=== PATIENT | male | born 1930 | race Caucasian/White ===

== ENCOUNTER → 2016-12-12 | Outpatient (CLI) | payer MEDICARE, BC ==
[~2016-12-12] VITALS: Ht 172.7 cm; Wt 100.2 kg
[~2016-12-12] MED LIST: ASP81TEC PO; ATOR20TA66 PO; ATOR40TA PO; ATOR40TA70 PO; CATHETER FLUSH 10 ML SYR IV PRN; REGADENOSON 0.4 MG/5 ML SYR (LEXISCAN) IV ONE; TRAM50TA2 PO; WRF5T PO; multivitamin PO
--- OUTSIDE RECORDS SUMMARY | 2016-12-12 07:55 | XMS REPORT | Continuity of Care Document ---
Author Author [facility] Organization [facility] Address Unknown Phone Unavailable Care Team Providers Care Elevator Mechanic Name Role Phone NO, LOCAL PHYSICIAN PCP Unavailable Insurance Providers Payer Name Policy Number Subscriber Name Relationship s Medicare [id number] Killian Chen 18 Self / Same As Patient [facility] [id number] Killian Chen 18 Self / Same As Patient Advance Directives Directive Response Recorded Date/Time Advance Directives No 03/29/16 4:54pm Health Care Power of Cloth Picker No 03/29/16 4:54pm Organ Donor No 03/29/16 4:54pm Resuscitation Status Full Code 03/29/16 4:54pm Problems No problem information available. Medications Current Home Medications Medication Dose Units Route Directions Days/Qty Instructions Start Date Aspirin 81 Mg 81 Mg Oral 1700 08/27/12 Atorvastatin Calcium 40 Mg 20 Mg Oral 1700 03/29/16 Tramadol Hcl 50 Mg 50 Mg Oral Every 12 Hours as needed for Abdominal Pain 20 03/31/16 Past Home Medications Medication Directions Ordered Status Atorvastatin Calcium 40 Mg Tablet, 20 Mg Oral Bedtime 02/04/12 Discontinued Atorvastatin Calcium 20 Mg Tablet, 20 Mg Oral 1600 03/29/16 Discontinued Social History Social History Problem Response Recorded Date/Time Alcohol Use Denies Use 03/29/2016 4:56pm Recreational Drug Use No 03/29/2016 4:56pm Recent Foreign Travel No 03/29/2016 4:56pm Recent Infectious Disease Exposure No 03/29/2016 4:56pm Smoking Status Never a Smoker 03/29/2016 4:55pm Query Response Start Date Stop Date Smoking Status Never a Smoker 02/04/1992 Hospital Discharge Instructions Patient Instructions Physician Instructions New, Converted or Re-Newed RX: RX on Chart Plan of Care/Instructions/FU: May shower. To use incentive spirometry for atleast one week. F/U in 1 week Activity as Tolerated: Yes Discharge Diet: No Restrictions Pneu Vac Indicated: Yes Care Plan Patient Instructions:: May shower. To use incentive spirometry for atleast one week. F/U in 1 week Plan of Care Discharge Date 04/01/16 8:55am Disposition 01 HOME, SELF-CARE Instructions/Education Provided DIABETES Diabetes Mellitus Type 2 in Adults (DC) Meal Planning with Diabetes Exchanges (DC) Acute Abdominal Pain (ED) Forms Provided PDI Medical Prescriptions See Medication Section Referrals (Unspecified) - Reason(s) for Referral: FOLLOW UP WITH DR. CHAUHAN IN ONE WEEK!!! Care Plan and Goals See Discharge Instructions Section Functional Status Query Response Date Recorded Patient Orientation Person Place Time Situation Eyes Open April 01, 2016 9:04am Comprehension Ability Understands Concepts March 31, 2016 8:25pm Allergies, Adverse Reactions, Alerts Allergen Type Severity Reaction Status Last Updated Penicillins ([id number]) Allergy Unknown Active 03/29/16 Egg Derived Allergy Unknown Active 03/29/16 CHLORINE Allergy Unknown Active 03/29/16 flu shot Allergy Unknown Active 03/29/16 Immunizations No immunization records. Vital Signs Acute Vital Signs Vital Response Date/Time Temperature (Fahrenheit) 97.8 degrees F (97.6 - 99.5) 04/01/2016 5:37am Temperature (Calculated Celsius) 36.95881 degrees C (36.4 - 37.5) 04/01/2016 5:37am Temperature Source Tympanic 04/01/2016 5:37am Pulse Rate (adult) 57 bpm (60 - 90) 04/01/2016 5:37am Respiratory Rate 20 bpm (12 - 24) 04/01/2016 5:37am O2 Sat by Pulse Oximetry 92 % (88 - 100) 04/01/2016 6:34am Blood Pressure 150/74 mm Hg 04/01/2016 5:37am Blood Pressure Mean 99 mm Hg 04/01/2016 5:37am Pain Pain Intensity 0 04/01/2016 5:37am Height (Feet) 5 feet 03/29/2016 4:51pm Height (Inches) 8.00 inches 03/29/2016 4:51pm Height (Calculated Centimeters) 172.069423 cm 03/29/2016 4:51pm Weight (Pounds) 214 pounds 03/29/2016 4:51pm Weight (Ounces) 6.0 oz 03/29/2016 4:51pm Weight (Calculated Grams) 83549.865 gm 03/29/2016 4:51pm Weight (Calculated Kilograms) 97.717773 kilograms 03/29/2016 4:51pm Calculated BMI 32.6 03/29/2016 4:51pm Results Laboratory Results Test Name Result Units Flags Reference Collection Date/Time Result Date/ Time Comments White Blood Count 13.1 10^3/uL H 4.3-11.0 03/30/2016 4:45am 03/30/2016 5: 43am Red Blood Count 3.69 10^6/uL L 4.35-5.85 03/30/2016 4:45am 03/30/2016 5: 43am Hemoglobin 11.9 G/DL L 13.3-17.7 03/30/2016 4:45am 03/30/2016 5:43am Hematocrit 36 % L 40-54 03/30/2016 4:45am 03/30/2016 5:43am Mean Corpuscular Volume 97 FL 80-99 03/30/2016 4:45am 03/30/2016 5: 43am Mean Corpuscular Hemoglobin 32 PG 25-34 03/30/2016 4:45am 03/30/2016 5: 43am Mean Corpuscular Hemoglobin Concent 33 G/DL 32-36 03/30/2016 4:45am 08/2016 5:43am Red Cell Distribution Width 14.5 % 10.0-14.5 03/30/2016 4:45am 2015 5:43am Platelet Count 205 10^3/uL 130-400 03/30/2016 4:45am 03/30/2016 5:43am Mean Platelet Volume 11.0 FL H 7.4-10.4 03/30/2016 4:45am 03/30/2016 5: 43am Neutrophils (%) (Auto) 76 % H 42-75 03/30/2016 4:45am 03/30/2016 5:43am Lymphocytes (%) (Auto) 12 % 12-44 03/30/2016 4:45am 03/30/2016 5:43am Monocytes (%) (Auto) 11 % 0-12 03/30/2016 4:45am 03/30/2016 5:43am Eosinophils (%) (Auto) 0 % 0-10 03/30/2016 4:4503/30/2016 5:43am Basophils (%) (Auto) 0 % 0-10 03/30/2016 4:45am 03/30/2016 5:43am Neutrophils # (Auto) 10.0 X 10^3 H 1.8-7.8 03/30/2016 4:45am 03/30/2016 5 :43am Lymphocytes # (Auto) 1.6 X 10^3 1.0-4.0 03/30/2016 4:45am 03/30/2016 5: 43am Monocytes # (Auto) 1.5 X 10^3 H 0.0-1.0 03/30/2016 4:45am 03/30/2016 5: 43am Eosinophils # (Auto) 0.1 10^3/uL 0.0-0.3 03/30/2016 4:45am 03/30/2016 5 :43am Basophils # (Auto) 0.0 10^3/uL 0.0-0.1 03/30/2016 4:45am 03/30/2016 5: 43am Neutrophils % (Manual) 79 % 03/29/2016 8:00am 03/29/2016 8:43am Band Neutrophils 8 % 03/29/2016 8:00am 03/29/2016 8:43am Lymphocytes % (Manual) 7 % 03/29/2016 8:00am 03/29/2016 8:43am Monocytes % (Manual) 6 % 03/29/2016 8:00am 03/29/2016 8:43am Eosinophils % (Manual) 0 % 03/29/2016 8:00am 03/29/2016 8:43am Basophils % (Manual) 0 % 03/29/2016 8:00am 03/29/2016 8:43am Blood Morphology Comment NORMAL 03/29/2016 8:00am 03/29/2016 8: 43am Urine Color SERVANDO * 03/29/2016 8:0503/29/2016 8:36am Urine Clarity CLEAR 03/29/2016 8:0503/29/2016 8:36am Urine pH 5 5-9 03/29/2016 8:0503/29/2016 8:36am Urine Specific [place] 1.025 * 1.016-1.022 03/29/2016 8:052015 8:36am Urine Protein 2+ * NEGATIVE 03/29/2016 8:0503/29/2016 8:36am Urine Glucose (UA) NEGATIVE NEGATIVE 03/29/2016 8:0503/29/2016 8: 36am Urine RBC (Auto) 2+ * NEGATIVE 03/29/2016 8:0503/29/2016 8:36am Urine Ketones 3+ * NEGATIVE 03/29/2016 8:0503/29/2016 8:36am Urine Nitrite NEGATIVE NEGATIVE 03/29/2016 8:0503/29/2016 8:36am Urine Bilirubin 1+ * NEGATIVE 03/29/2016 8:0503/29/2016 8:36am CONFIRMATORY ICTOTEST NEGATIVE Urine Urobilinogen 1 MG/DL NORMAL 03/29/2016 8:0503/29/2016 8:36am Urine Leukocyte Esterase 1+ * NEGATIVE 03/29/2016 8:0503/29/2016 8: 36am Urine RBC RARE /HPF 03/29/2016 8:0503/29/2016 8:36am Urine WBC 0-2 /HPF 03/29/2016 8:0503/29/2016 8:36am Urine Bacteria TRACE /HPF 03/29/2016 8:0503/29/2016 8:36am Urine Squamous Epithelial Cells 0-2 /HPF 03/29/2016 8:052015 8:36am Urine Crystals NONE /LPF 03/29/2016 8:0503/29/2016 8:36am Urine Casts PRESENT /LPF 03/29/2016 8:0503/29/2016 8:36am Urine Hyaline Casts 2-5 /LPF * 03/29/2016 8:0503/29/2016 8:36am Urine Mucus MODERATE /LPF * 03/29/2016 8:0503/29/2016 8:36am Urine Culture Indicated NO 03/29/2016 8:0503/29/2016 8:36am Sodium Level 137 MMOL/L 135-145 03/30/2016 4:4503/30/2016 6:09am Potassium Level 4.2 MMOL/L 3.6-5.0 03/30/2016 4:45am 03/30/2016 6:09am Chloride Level 106 MMOL/L 98-107 03/30/2016 4:45am 03/30/2016 6:09am Carbon Dioxide Level 24 MMOL/L 21-32 03/30/2016 4:45am 03/30/2016 6: 09am Anion Gap 7 MMOL/L 5-14 03/30/2016 4:45am 03/30/2016 6:09am Blood Urea Nitrogen 9 MG/DL 7-18 03/30/2016 4:45am 03/30/2016 6:09am Creatinine 0.99 MG/DL 0.60-1.30 03/30/2016 4:45am 03/30/2016 6:09am BUN/Creatinine Ratio 9 03/30/2016 4:45am 03/30/2016 6:09am Estimat Glomerular Filtration Rate > 60 03/30/2016 4:45am 2015 6:09am GFR INTERPRETIVE DATA UNITS FOR ESTIMATED GFR (eGFR): mL/min/1.73 M2 REFERENCE RANGE FOR ESTIMATED GFR (eGFR) eGFR NORMAL eGFR >60 MODERATELY DECREASED eGFR 30-59 SEVERLY DECREASED eGFR 15-29 KIDNEY FAILURE <15 (OR DIALYSIS) Glucose Level 133 MG/DL H 70-105 03/30/2016 4:45am 03/30/2016 6:09am Glucometer 128 MG/DL H 70-110 04/01/2016 5:41am 04/01/2016 5:47am Calcium Level 7.9 MG/DL L 8.5-10.1 03/30/2016 4:45am 03/30/2016 6:09am Total Bilirubin 0.8 MG/DL 0.1-1.0 03/30/2016 4:45am 03/30/2016 6:09am Alkaline Phosphatase 57 U/L 40-136 03/30/2016 4:45am 03/30/2016 6:09am Aspartate Amino Transf (AST/SGOT) 38 U/L H 5-34 03/30/2016 4:45am 2015 6:09am Alanine Aminotransferase (ALT/SGPT) 33 U/L 0-55 03/30/2016 4:45am 03/30 6:09am Total Protein 5.6 G/DL L 6.4-8.2 03/30/2016 4:45am 03/30/2016 6:09am Albumin 3.1 G/DL L 3.2-4.5 03/30/2016 4:45am 03/30/2016 6:09am Lipase 24 U/L 8-78 03/29/2016 8:00am 03/29/2016 8:45am Hemoglobin A1c 8.0 % H 4.5-6.2 03/30/2016 4:45am 03/30/2016 6:53am Microbiology Results Procedure Source Result Collection Date/Time Result Date/Time MRSA Screen Nasal MRSA not isolated 03/29/2016 3:58pm 03/30/2016 3:55pm Procedures Procedure Status Date Provider(s) Laparoscopic cholecystectomy Completed 03/29/16 KIRAN CHAUHAN MD Tracing only of electrocardiogram Active 03/30/16 JUAN UMANZOR MD Encounters Encounter Location Arrival/Admit Date Discharge/Depart Date Attending Provider Discharged Inpatient [facility] 03/29/16 1:06pm 8:55am JUJU HATHAWAY MD
[2016-12-12 09:26] VITALS: BP 156/88
[2016-12-12 09:28] VITALS: BP 146/69
[2016-12-12 09:30] VITALS: BP 164/70
--- NOTE | 2016-12-13 08:36 | STRESS TEST ---
PROCEDURE PHYSICIAN: KEVIN FRANCOIS DATE OF PROCEDURE: 12/12/2016 RESTING AND POST REGADENOSON TECHNETIUM 99M TETROFOSMIN SPECT CT IMAGING: ORDERING PHYSICIAN: Dr. Francois CLINICAL DIAGNOSES: 1. Coronary artery disease. 2. History of coronary artery bypass surgery. Baseline images were carried out after injection of 10.07 mCi of technetium 99m tetrofosmin. This was followed by 0.4 mg of regadenoson and 32.5 mCi of technetium 99m tetrofosmin for stress imaging. The electrocardiogram showed sinus rhythm with first degree AV block at baseline. There were isolated premature atrial contractions and isolated premature ventricular contractions, in frequency. The electrocardiogram did not change significantly with regadenoson infusion. He noted mild shortness of breath following regadenoson infusion, which resolved in a few minutes. Review of images rest and following stress, does not indicate any distinct perfusion defects consistent with significant myocardial ischemia or infarction. Gated images show normal global left ventricular systolic function with normal regional wall motion. Left ventricular ejection fraction is calculated to be 76%. Left ventricular end-diastolic volume is 51 mL. TID is absent (0.97). CONCLUSIONS: 1. No evidence of significant myocardial ischemia or infarction on this study. 2. Normal regional wall motion. 3. Normal global left ventricular systolic function with a calculated ejection fraction of 76%. 4. Normal left ventricular cavity size. Job ID: [id number] Dictated Date: 12/12/2016 10:47:00 Guest Attendant Date: 12/13/2016 08:26:45 / sridhar
== END ==
LOC: CARD 07:52
PROVIDERS: ATTEND Internal Medicine Cardiovascular Disease
DX: I25.10 Atherosclerotic heart disease of native coronary artery without angina pectoris (principal); Z95.1 Presence of aortocoronary bypass graft; I65.23 Occlusion and stenosis of bilateral carotid arteries; E78.4 Other hyperlipidemia
CPT/HCPCS: 78452; 93017

== ENCOUNTER → 2018-01-01 | Outpatient (CLI) | payer MEDICARE ==
[~2018-01-01] MED LIST changes: -CATHETER FLUSH 10 ML SYR IV PRN; -REGADENOSON 0.4 MG/5 ML SYR (LEXISCAN) IV ONE
== END ==
LOC: CARD 10:54
PROVIDERS: ATTEND Nurse Practitioner Family
DX: I44.0 Atrioventricular block, first degree (principal); I25.10 Atherosclerotic heart disease of native coronary artery without angina pectoris; I10 Essential (primary) hypertension; E78.5 Hyperlipidemia, unspecified
CPT/HCPCS: 93225; 93226

== ENCOUNTER 2019-06-29 11:41 | Emergency (ER) | payer MEDICARE ==
[~2019-06-29] VITALS: Ht 172.7 cm; Wt 100.0 kg
[2019-06-29 12:24] LABS: BASOPHILS % (AUTO) 0 % (0-10); EOSINOPHILS # (AUTO) 0.3 10^3/uL (0.0-0.3); EOSINOPHILS % (AUTO) 3 % (0-10); HEMATOCRIT 39 % (40-54); HEMOGLOBIN 12.8 G/DL (13.3-17.7); LYMPHOCYTES # (AUTO) 1.9 X 10^3 (1.0-4.0); LYMPHOCYTES % (AUTO) 25 % (12-44); MEAN CORPUSCULAR HEMOGLOBIN 31 PG (25-34); MEAN CORPUSCULAR HGB CONC 33 G/DL (32-36); MEAN CORPUSCULAR VOLUME 97 FL (80-99); MEAN PLATELET VOLUME 9.6 FL (7.4-10.4); MONOCYTES # (AUTO) 0.8 X 10^3 (0.0-1.0); MONOCYTES % (AUTO) 11 % (0-12); NEUTROPHILS # (AUTO) 4.6 X 10^3 (1.8-7.8); NEUTROPHILS % (AUTO) 60 % (42-75); PLATELET COUNT 328 10^3/uL (130-400); WHITE BLOOD COUNT 7.6 10^3/uL (4.3-11.0)
--- NOTE | 2019-06-29 12:36 | Diagnostic Imaging Report ---
INDICATION: Chronic chest pain. Shortness of air. COMPARISON: 02/04/2012 FINDINGS: Frontal and lateral views of the chest demonstrate normal heart size and pulmonary vascularity. The lungs are clear. There are no signs of infiltrate, pleural effusions or pneumothoraces. The visualized osseous structures show no acute abnormalities. Sternotomy wires are noted. IMPRESSION: 1. No acute process. No signs of infiltrates, effusions or pneumothoraces. Dictated by: Dictated on workstation # [id number]
[2019-06-29 12:45] LABS: ALANINE AMINOTRANSFERASE 18 U/L (0-55); ALBUMIN 3.7 GM/DL (3.2-4.5); ALKALINE PHOSPHATASE 94 U/L (40-136); BILIRUBIN,TOTAL 0.5 MG/DL (0.1-1.0); BUN/CREATININE RATIO 12; CALCIUM 9.3 MG/DL (8.5-10.1); CARBON DIOXIDE 28 MMOL/L (21-32); CHLORIDE 102 MMOL/L (98-107); CREATININE SERUM 1.06 MG/DL (0.60-1.30); GFR ESTIMATED > 60; GLUCOSE 148 MG/DL (70-105); MAGNESIUM 1.8 MG/DL (1.6-2.4); POTASSIUM 4.4 MMOL/L (3.6-5.0); SODIUM 136 MMOL/L (135-145); TOTAL PROTEIN 7.4 GM/DL (6.4-8.2)
--- NOTE | 2019-06-29 13:05 | NUR ---
UNSURE OF MEDS. NO LIST
--- NOTE | 2019-06-29 13:11 | ED General ---
General Chief Complaint: General Problems/Pain Stated Complaint: SHORTNESS OF BREATH Nursing Triage Note: AMB TO ROOM WAS SENT FROM [facility] IN [place] PATIENT HAD WENT TO SEEN DR FOR CONCERN OVER SWELLING IN R LEG. AND FEELING SOA FOR APX 6 MONTHS. Nursing Sepsis Screen: No Definite Risk Source of Information: Patient Exam Limitations: No Limitations History of Present Illness Date Seen by Provider: Jun 29, 2019 Time Seen by Provider: 11:55 Initial Comments This 89-year-old gentleman presents to the emergency room with right lower extr emity edema. He was sent here by his primary care provider, Dr. Adrian, in [facility] for evaluation of possible DVT. The clinic nurse tells me that he also has had some shortness of breath. Patient admits that he has had shortness of breath over the past 6 months. He denies any chest pain. There is questionable history of prior DVT and PE. He was anticoagulated on warfarin at one point. Allergies and Home Medications Allergies Coded Allergies: Egg Derived (Verified Allergy, Unknown, 03/29/16) Influenza Virus Vaccines (Unverified Allergy, Unknown, 12/12/16) Penicillins (Unverified Allergy, Unknown, 03/29/16) Uncoded Allergies: CHLORINE (Allergy, Unknown, 03/29/16) Home Medications Aspirin 81 Mg Tabec, 81 MG PO 1700, (Reported) Atorvastatin Calcium 40 Mg Tablet, 20 MG PO 1700, (Reported) Tramadol HCl 50 Mg Tablet, 50 MG PO Q12H PRN for ABDOMINAL PAIN Prescribed by: KIRAN CHAUHAN on 03/31/16 1132 Patient Home Medication List Home Medication List Reviewed: Yes Review of Systems Review of Systems Constitutional: no symptoms reported EENTM: no symptoms reported Respiratory: see HPI, short of breath Cardiovascular: see HPI Gastrointestinal: no symptoms reported Genitourinary: no symptoms reported Musculoskeletal: no symptoms reported Skin: no symptoms reported Psychiatric/Neurological: No Symptoms Reported Hematologic/Lymphatic: No Symptoms Reported Past Csrabcs-Kumtya-Klfxpj Hx Past Med/Social Hx: Reviewed and Corrections made Patient Social History Alcohol Use: Denies Use Recreational Drug Use: No Smoking Status: Never a Smoker Recent Foreign Travel: No Contact w/Someone Who Travel: No Recent Infectious Disease Expo: No Recent Hopitalizations: Yes Past Medical History Surgeries: Yes (SPLEENECTOMY, ) CABG, Gallbladder Respiratory: Yes Pulmonary Embolism Currently Using CPAP: No Currently Using BIPAP: No Cardiac: Yes (BYPASS) Coronary Artery Disease, High Cholesterol Neurological: No Reproductive Disorders: No Gastrointestinal: Yes Hiatal Hernia Musculoskeletal: Yes (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 No Pertinent Family Hx Physical Exam Vital Signs Vital Signs - First Documented 06/29/19 12:11 Temp 36.7 Pulse 52 Resp 18 B/P (MAP) 150/84 Pulse Ox 97 O2 Delivery Room Air Capillary Refill : Less Than 3 Seconds Height, Weight, BMI Height: 5'8.00" Weight: 221lbs. 0.0oz. 100.415000me; 33.00 BMI Method:Stated General Appearance: No Apparent Distress, WD/WN HEENT: PERRL/EOMI, Normal ENT Inspection Neck: Normal Inspection Respiratory: Lungs Clear, Normal Breath Sounds, No Accessory Muscle Use, No Respiratory Distress Cardiovascular: Regular Rate, Rhythm, No Murmur, Normal Peripheral Pulses Gastrointestinal: Non Tender, Soft Extremity: Normal Inspection, Other (marked tight pitting edema of the right lower extremity with tenderness in the calf. Disfigurement of the left lower leg from prior injury) Neurologic/Psychiatric: Alert, Oriented x3, No Motor/Sensory Deficits, Normal Mood/Affect, blow down operator II-XII Norm as Tested Skin: Normal Color, Warm/Dry Progress/Results/Core Measures Suspected Sepsis Recent Fever Within 48 Hours: No Infection Criteria Present: None New/Unexplained Altered Menta: No Sepsis Screen: No Definite Risk SIRS Temperature: Pulse: 52 Respiratory Rate: 18 Laboratory Tests 06/29/19 12:11: White Blood Count 7.6 Blood Pressure 150 /84 Mean: 106 Laboratory Tests 06/29/19 12:11: Creatinine 1.06, Platelet Count 328, Total Bilirubin 0.5 Results/Orders Lab Results Laboratory Tests Test 06/29/19 12:11 Range/Units White Blood Count 7.6 4.3-11.0 10^3/uL Red Blood Count 4.07 L 4.35-5.85 10^6/uL Hemoglobin 12.8 L 13.3-17.7 G/DL Hematocrit 39 L 40-54 % Mean Corpuscular Volume 97 80-99 FL Mean Corpuscular Hemoglobin 31 25-34 PG Mean Corpuscular Hemoglobin Concent 33 32-36 G/DL Red Cell Distribution Width 14.0 10.0-14.5 % Platelet Count 328 130-400 10^3/uL Mean Platelet Volume 9.6 7.4-10.4 FL Neutrophils (%) (Auto) 60 42-75 % Lymphocytes (%) (Auto) 25 12-44 % Monocytes (%) (Auto) 11 0-12 % Eosinophils (%) (Auto) 3 0-10 % Basophils (%) (Auto) 0 0-10 % Neutrophils # (Auto) 4.6 1.8-7.8 X 10^3 Lymphocytes # (Auto) 1.9 1.0-4.0 X 10^3 Monocytes # (Auto) 0.8 0.0-1.0 X 10^3 Eosinophils # (Auto) 0.3 0.0-0.3 10^3/uL Basophils # (Auto) 0.0 0.0-0.1 10^3/uL Sodium Level 136 135-145 MMOL/L Potassium Level 4.4 3.6-5.0 MMOL/L Chloride Level 102 98-107 MMOL/L Carbon Dioxide Level 28 21-32 MMOL/L Anion Gap 6 5-14 MMOL/L Blood Urea Nitrogen 13 7-18 MG/DL Creatinine 1.06 0.60-1.30 MG/DL Estimat Glomerular Filtration Rate > 60 BUN/Creatinine Ratio 12 Glucose Level 148 H 70-105 MG/DL Calcium Level 9.3 8.5-10.1 MG/DL Corrected Calcium 9.5 8.5-10.1 MG/DL Magnesium Level 1.8 1.6-2.4 MG/DL Total Bilirubin 0.5 0.1-1.0 MG/DL Aspartate Amino Transf (AST/SGOT) 19 5-34 U/L Alanine Aminotransferase (ALT/SGPT) 18 0-55 U/L Alkaline Phosphatase 94 40-136 U/L C-Reactive Protein High Sensitivity 2.73 H 0.00-0.50 MG/DL B-Type Natriuretic Peptide 139.7 H <100.0 PG/ML Total Protein 7.4 6.4-8.2 GM/DL Albumin 3.7 3.2-4.5 GM/DL My Philipp Segal - CURTIS DOMINGUEZ MD BNP (06/29/19 11:58) Cbc With Automated Diff (06/29/19 11:58) Comprehensive Metabolic Panel (06/29/19 11:58) Hs C Reactive Protein (06/29/19 11:58) Magnesium (06/29/19 11:58) Ekg Tracing (06/29/19 11:58) Monitor-Rhythm Ecg Trace Only (06/29/19 11:58) Chest Pa/Lat (2 View) (06/29/19 11:58) Us Venous Lower Ext Ceferino (06/29/19 11:58) Apixaban Tablet (Eliquis Tablet) (06/29/19 15:00) Medications Given in ED Current Medications Medications Dose Ordered Sig/Afshan Route Start Time Stop Time Status Last Admin Dose Admin Apixaban 10 mg ONCE ONCE PO 06/29/19 15:00 06/29/19 15:01 DC 06/29/19 14:54 10 MG Vital Signs/I&O 06/29/19 06/29/19 12:11 15:12 Temp 36.7 Pulse 52 55 Resp 18 18 B/P (MAP) 150/84 130/92 Pulse Ox 97 97 O2 Delivery Room Air Room Air Capillary Refill : Less Than 3 Seconds Blood Pressure Mean: 106 Progress Note : Progress Note Ultrasound revealed bilateral DVT. He was started on Eliquis in the ER. Arrangements were made with Dr. Francois's office to help him get samples and financial assistance with the remainder of anticoagulant needed. ECG Initial ECG Impression Date: Jun 29, 2019 Initial ECG Impression Time: 12:14 Initial ECG Rate: 54 Initial ECG Rhythm: Normal Sinus Comment Sinus rhythm with first-degree AV block. No ST elevation or depression. No axis deviation. Diagnostic Imaging Diagonstic Imaging: Xray Plain Films/CT/US/NM/MRI: chest Comments Chest x-ray viewed by me and report reviewed. See report below: NAME: YVONNE COLE MED REC#: [id number] PT STATUS: REG ER : 1930 PHYSICIAN: CURTIS DOMINGUEZ MD ADMIT DATE: 06/29/19/ER Draft Date of Exam:06/29/19 CHEST PA/LAT (2 VIEW) INDICATION: Chronic chest pain. Shortness of air. COMPARISON: 02/04/2012 FINDINGS: Frontal and lateral views of the chest demonstrate normal heart size and pulmonary vascularity. The lungs are clear. There are no signs of infiltrate, pleural effusions or pneumothoraces. The visualized osseous structures show no acute abnormalities. Sternotomy wires are noted. IMPRESSION: 1. No acute process. No signs of infiltrates, effusions or pneumothoraces. Dictated on workstation # [id number] Dict: 06/29/19 1234 Trans: 06/29/19 1235 [id number] Interpreted by: CECILIA PATEL MD Diagonstic Imaging: Ultrasound Plain Films/CT/US/NM/MRI: leg Comments Bilateral lower extremity venous ultrasounds discussed with hematology technician and report reviewed. See report below: NAME: YVONNE COLE MED REC#: [id number] PT STATUS: DEP ER : 1930 PHYSICIAN: CURTIS DOMINGUEZ MD ADMIT DATE: 06/29/19/ER Signed Date of Exam: 06/29/19 US VENOUS LOWER EXT CEFERINO PROCEDURE: US Venous Lower Ext Ceferino. TECHNIQUE: Multiple real-time grayscale images were obtained over the lower extremities in various projections, bilaterally. Additional duplex Doppler and color Doppler images were also obtained. INDICATION: Lower extremity pain and swelling. History of DVT. COMPARISON: None available. FINDINGS: The common femoral vein is partially compressible with nonocclusive thrombus present. The proximal deep femoral vein is patent. The remaining visualized deep venous structures of the right lower extremity including the superficial femoral, popliteal, peroneal, and posterior tibial veins are noncompressible with nonocclusive thrombus present. The proximal and mid portions of the left superficial femoral vein are noncompressible, with partial compressibility demonstrated in the distal superficial femoral vein. The visualized portions of the popliteal and peroneal veins appear patent. IMPRESSION: Nonocclusive thrombus in the right common femoral vein, with extensive occlusive thrombus in the remaining visualized deep venous structures of the right lower extremity. Nonocclusive thrombus is demonstrated in the left superficial femoral vein. The thrombus appears to be peripheral in nature, possibly reflecting chronicity. Report was called to Dr. Dominguez [facility] ER by jagdeep at 2:10 p.m. Dictated by: Dictated on workstation # [id number] Dict: 06/29/19 1329 Trans: 06/29/191751 Interpreted by: YUMI DUNLAP DO Electronically signed by: YUMI DUNLAP DO 06/29/191751 Departure Impression Primary Impression: DVT, bilateral lower limbs Qualified Codes: I82.403 - Acute embolism and thrombosis of unspecified deep veins of lower extremity, bilateral Disposition: 01 HOME, SELF-CARE Condition: Improved Departure-Patient Inst. Decision time for Depature: 14:30 Referrals: YUMI ADRIAN MD (PCP) Primary Care Physician KEVIN FRANCOIS MD [facility] Patient Instructions: Deep Vein Thrombosis (Blood Clots in the Legs) (DC) Add. Discharge Instructions: Go directly to Dr. Francois's office to arrange blood thinner medication assistance. Return to the emergency room if you have worsening of symptoms including worsening shortness of breath, unusual bleeding, etc. All discharge instructions reviewed with patient and/or family. Voiced understanding. Copy Copies To 1: KEVIN FRANCOIS MD [facility] CURTIS DOMINGUEZ MD Jun 29, 2019 13:11
--- NOTE | 2019-06-29 14:09 | Diagnostic Imaging Report ---
PROCEDURE: US Venous Lower Ext Ang. TECHNIQUE: Multiple real-time grayscale images were obtained over the lower extremities in various projections, bilaterally. Additional duplex Doppler and color Doppler images were also obtained. INDICATION: Lower extremity pain and swelling. History of DVT. COMPARISON: None available. FINDINGS: The common femoral vein is partially compressible with nonocclusive thrombus present. The proximal deep femoral vein is patent. The remaining visualized deep venous structures of the right lower extremity including the superficial femoral, popliteal, peroneal, and posterior tibial veins are noncompressible with nonocclusive thrombus present. The proximal and mid portions of the left superficial femoral vein are noncompressible, with partial compressibility demonstrated in the distal superficial femoral vein. The visualized portions of the popliteal and peroneal veins appear patent. IMPRESSION: Nonocclusive thrombus in the right common femoral vein, with extensive occlusive thrombus in the remaining visualized deep venous structures of the right lower extremity. Nonocclusive thrombus is demonstrated in the left superficial femoral vein. The thrombus appears to be peripheral in nature, possibly reflecting chronicity. Report was called to Dr. Dominguez [facility] by [email or web address] at 2:10 p.m. Dictated by: Dictated on workstation # [id number]
[2019-06-29] MEDS ORDERED: APIXABAN 5 MG (ELIQUIS) TABLET PO ONE (15:00)
[2019-06-29 15:12] VITALS: BP 130/92
== END 2019-06-29 15:10 | disposition home or self-care (01) ==
LOC: EDUNIT# 11:41 → ER 11:42
DX: I82.403 Acute embolism and thrombosis of unspecified deep veins of lower extremity, bilateral (principal); I25.10 Atherosclerotic heart disease of native coronary artery without angina pectoris; E78.00 Pure hypercholesterolemia, unspecified; E11.9 Type 2 diabetes mellitus without complications; Z86.711 Personal history of pulmonary embolism; Z88.0 Allergy status to penicillin; Z91.012 Allergy to eggs; Z88.8 Allergy status to other drugs, medicaments and biological substances; Z79.82 Long term (current) use of aspirin; Z95.1 Presence of aortocoronary bypass graft
CPT/HCPCS: 36415; 71046; 80053; 83735; 83880; 85025; 86141; 93005; 93970

== ENCOUNTER → 2019-07-05 | Outpatient (CLI) | payer MEDICARE, BC ==
[~2019-07-05] MED LIST changes: +HOLD METFORMIN - RECEIVED CONTRAST 20 ML VIAL IV SCH; +IOHEXOL 350 MG/ML 100 ML (OMNIPAQUE 350) VIAL IV ONE; +NS 100 ML (IVPB) BAG IV ONE
[2019-07-05 12:09] LABS: BUN/CREATININE RATIO 12; CALCIUM 9.5 MG/DL (8.5-10.1); CARBON DIOXIDE 28 MMOL/L (21-32); CHLORIDE 101 MMOL/L (98-107); CREATININE SERUM 1.11 MG/DL (0.60-1.30); GFR ESTIMATED > 60; GLUCOSE 140 MG/DL (70-105); POTASSIUM 4.6 MMOL/L (3.6-5.0); SODIUM 137 MMOL/L (135-145)
--- NOTE | 2019-07-05 13:43 | Diagnostic Imaging Report ---
PROCEDURE: CT angiography of the chest with contrast. TECHNIQUE: Multiple contiguous axial images were obtained through the chest after uneventful bolus administration of intravenous contrast. 3D reconstructed CTA MIP acquisitions were also performed. Auto Exposure Controls were utilized during the CT exam to meet ALARA standards for radiation dose reduction. INDICATION: Bilateral DVTs. Dyspnea on exertion. Coronary artery disease and hypertension. COMPARISON: Chest x-ray from 06/29/2019. FINDINGS: The pulmonary arteries are diagnostic to the segmental level. There are filling defects in the artery of the right medial basal lower lobe. No central or saddle embolus is seen. The heart is normal in size. There is no evidence of right heart strain. There is mild calcific atherosclerosis of the aorta with no dissection. The ascending aorta is mildly ectatic. 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 There are mildly prominent lymph nodes, the largest measuring 15 mm in the short axis, located in the right lower paratracheal region. There are mildly prominent hilar lymph nodes bilaterally. There is a small hiatal hernia. There are scattered mildly prominent lymph nodes in the upper abdomen including along the left anterior peritoneum and in the paraesophageal region. There is mildly prominent lymph node posterior to the right liver. Alternatively, this could represent splenosis given the small size of the spleen. This appears stable since 2011. IMPRESSION: 1. Pulmonary embolus in the medial basal right lower lobe artery. No central embolus is seen. There is no evidence of right heart strain. 2. Mildly prominent nonspecific mediastinal and hilar lymph nodes, may be reactive. 3. Small hiatal hernia. 4. There appear to be multiple mildly prominent lymph nodes in the upper abdomen, although this is stable since 2011 and may represent splenosis. Dictated by: Dictated on workstation # [id number]
== END ==
LOC: RAD 11:30
PROVIDERS: ATTEND Nurse Practitioner Family
DX: I26.99 Other pulmonary embolism without acute cor pulmonale (principal); I82.423 Acute embolism and thrombosis of iliac vein, bilateral; I25.10 Atherosclerotic heart disease of native coronary artery without angina pectoris; I65.29 Occlusion and stenosis of unspecified carotid artery; I10 Essential (primary) hypertension
CPT/HCPCS: 36415; 71275; 80048

== ENCOUNTER 2019-11-08 10:48 | Outpatient (RCR) | payer MEDICARE, BC ==
[2019-09-07 15:33] LABS: BASOPHILS % (AUTO) 0 % (0-10); EOSINOPHILS # (AUTO) 0.2 10^3/uL (0.0-0.3); EOSINOPHILS % (AUTO) 3 % (0-10); HEMATOCRIT 39 % (40-54); HEMOGLOBIN 12.8 G/DL (13.3-17.7); LYMPHOCYTES # (AUTO) 1.7 X 10^3 (1.0-4.0); LYMPHOCYTES % (AUTO) 26 % (12-44); MEAN CORPUSCULAR HEMOGLOBIN 32 PG (25-34); MEAN CORPUSCULAR HGB CONC 33 G/DL (32-36); MEAN CORPUSCULAR VOLUME 97 FL (80-99); MEAN PLATELET VOLUME 10.3 FL (7.4-10.4); MONOCYTES # (AUTO) 0.7 X 10^3 (0.0-1.0); MONOCYTES % (AUTO) 11 % (0-12); NEUTROPHILS # (AUTO) 3.9 X 10^3 (1.8-7.8); NEUTROPHILS % (AUTO) 61 % (42-75); PLATELET COUNT 267 10^3/uL (130-400); RED CELL DISTRIBUTION WIDTH 14.1 % (10.0-14.5); WHITE BLOOD COUNT 6.5 10^3/uL (4.3-11.0)
[2019-09-07 15:58] LABS: ALANINE AMINOTRANSFERASE 22 U/L (0-55); ALBUMIN 3.8 GM/DL (3.2-4.5); ALKALINE PHOSPHATASE 71 U/L (40-136); BILIRUBIN,TOTAL 0.4 MG/DL (0.1-1.0); BUN/CREATININE RATIO 14; CALCIUM 9.2 MG/DL (8.5-10.1); CARBON DIOXIDE 26 MMOL/L (21-32); CHLORIDE 103 MMOL/L (98-107); CREATININE SERUM 1.09 MG/DL (0.60-1.30); GFR ESTIMATED > 60; GLUCOSE 280 MG/DL (70-105); POTASSIUM 4.3 MMOL/L (3.6-5.0); SODIUM 139 MMOL/L (135-145); TOTAL PROTEIN 7.2 GM/DL (6.4-8.2)
[~2019-11-08 10:48] MED LIST changes: -HOLD METFORMIN - RECEIVED CONTRAST 20 ML VIAL IV SCH; -IOHEXOL 350 MG/ML 100 ML (OMNIPAQUE 350) VIAL IV ONE; -NS 100 ML (IVPB) BAG IV ONE; -TRAM50TA2 PO; +TRM50T PO
== END 2019-12-06 | disposition home or self-care (01) ==
LOC: ONC 10:48
PROVIDERS: ATTEND Internal Medicine Hematology & Oncology
DX: Z12.5 Encounter for screening for malignant neoplasm of prostate (principal); I82.409 Acute embolism and thrombosis of unspecified deep veins of unspecified lower extremity; H91.90 Unspecified hearing loss, unspecified ear; I25.10 Atherosclerotic heart disease of native coronary artery without angina pectoris; I10 Essential (primary) hypertension; E78.5 Hyperlipidemia, unspecified
CPT/HCPCS: 36415; 80053; 81240; 81241; 84153; 85025; 99214

== ENCOUNTER 2020-02-07 10:08 | Outpatient (RCR) | payer MEDICARE, BC ==
[2020-02-07 10:26] LABS: BASOPHILS % (AUTO) 0 % (0-10); EOSINOPHILS # (AUTO) 0.2 10^3/uL (0.0-0.3); EOSINOPHILS % (AUTO) 3 % (0-10); HEMATOCRIT 42 % (40-54); HEMOGLOBIN 13.9 G/DL (13.3-17.7); LYMPHOCYTES # (AUTO) 2.2 X 10^3 (1.0-4.0); LYMPHOCYTES % (AUTO) 31 % (12-44); MEAN CORPUSCULAR HEMOGLOBIN 32 PG (25-34); MEAN CORPUSCULAR HGB CONC 33 G/DL (32-36); MEAN CORPUSCULAR VOLUME 97 FL (80-99); MEAN PLATELET VOLUME 10.2 FL (7.4-10.4); MONOCYTES # (AUTO) 0.7 X 10^3 (0.0-1.0); MONOCYTES % (AUTO) 10 % (0-12); NEUTROPHILS % (AUTO) 56 % (42-75); PLATELET COUNT 284 10^3/uL (130-400); WHITE BLOOD COUNT 7.1 10^3/uL (4.3-11.0)
[2020-02-07 10:43] LABS: ALANINE AMINOTRANSFERASE 17 U/L (0-55); ALBUMIN 3.8 GM/DL (3.2-4.5); ALKALINE PHOSPHATASE 73 U/L (40-136); BILIRUBIN,TOTAL 0.5 MG/DL (0.1-1.0); BUN/CREATININE RATIO 15; CALCIUM 9.6 MG/DL (8.5-10.1); CARBON DIOXIDE 29 MMOL/L (21-32); CHLORIDE 100 MMOL/L (98-107); CREATININE SERUM 1.04 MG/DL (0.60-1.30); GFR ESTIMATED > 60; GLUCOSE 186 MG/DL (70-105); POTASSIUM 5.2 MMOL/L (3.6-5.0); SODIUM 137 MMOL/L (135-145); TOTAL PROTEIN 7.6 GM/DL (6.4-8.2)
== END 2020-05-07 | disposition home or self-care (01) ==
LOC: ONC 10:08
PROVIDERS: ATTEND Internal Medicine Hematology & Oncology
DX: Z12.5 Encounter for screening for malignant neoplasm of prostate (principal); I82.409 Acute embolism and thrombosis of unspecified deep veins of unspecified lower extremity; H91.90 Unspecified hearing loss, unspecified ear; I25.10 Atherosclerotic heart disease of native coronary artery without angina pectoris; I10 Essential (primary) hypertension; E78.5 Hyperlipidemia, unspecified; R97.20 Elevated prostate specific antigen [PSA]
CPT/HCPCS: 80053; 85025; G0463; 99213